=== PATIENT | female | born 1980 | race Caucasian/White ===

== ENCOUNTER 2020-10-05 13:23 | Emergency (ER) | payer OTHER ==
[~2020-10-05 13:23] MED LIST: COLACE 100MG C100 MG PO
[2020-10-05 15:21] LABS: HEMOGLOBIN 14.3 gm/dl (12.3-15.3); RED BLOOD COUNT 5.25 M/UL (4.00-5.10); WHITE BLOOD COUNT 11.2 K/UL (4.5-11.0)
[2020-10-05 16:08] LABS: BUN/CREATININE RATIO 14 (0-10)
== END 2020-10-05 17:14 | disposition home or self-care (01) ==
LOC: ER1 13:23
PROVIDERS: Physician Assistant
DX: R10.2 Pelvic and perineal pain (principal); F41.9 Anxiety disorder, unspecified; Z87.42 Personal history of other diseases of the female genital tract; Z90.49 Acquired absence of other specified parts of digestive tract; Z91.013 Allergy to seafood
CPT/HCPCS: 80053; 81001; 84703; 85025; 99284